=== PATIENT | male | born 1980 | race Caucasian/White ===

== ENCOUNTER 2017-09-12 12:02 | Emergency (ER) | payer SELFPAY ==
[~2017-09-12] VITALS: Ht 180.3 cm; Wt 83.9 kg
[2017-09-12] MEDS ORDERED: SODIUM BICARBONATE 8.4% INJ 50ML SYRINGE IV ONE (12:03)
[2017-09-12] MEDS ORDERED: EPINEPHrine HCL 1 MG/10 ML SYRG IV ONE ×2 (12:03)
[2017-09-12] MEDS ORDERED: CALCIUM CHLOR(10%) 100MG/ML 10ML SYRINGE IV ONE (22:22)
== END 2017-09-12 18:28 | disposition expired ==
LOC: EDBD 12:02 → ER 12:02
DX: I46.9 Cardiac arrest, cause unspecified (principal); V29.49XA Motorcycle driver injured in collision with other motor vehicles in traffic accident, initial encounter; Y93.89 Activity, other specified; Y99.8 Other external cause status; Y92.410 Unspecified street and highway as the place of occurrence of the external cause
CPT/HCPCS: 31500; 82962; 92950; 99291; J0171